=== PATIENT | male | born 1940 | race American Indian/Alaskan Native ===

== ENCOUNTER 2021-02-22 06:19 | Emergency (ER) | payer MEDICARE, MEDICAID ==
[2021-02-22 07:22] VITALS: BP 160/93
--- NOTE | 2021-02-22 10:24 | Emergency Department Report ---
ED ENT HPI - General Chief complaint: Earache Stated complaint: INSECT IN EAR Time Seen by Provider: 02/22/21 10:08 Source: patient Mode of arrival: Ambulatory Limitations: No Limitations - History of Present Illness Initial comments: Patient is a 80-year-old male presents emergency room complaints of concern for a right ear foreign body. He states that he believes a bug crawled into his ear early this morning. He states that the EMS personnel came to his house and he reports they were able to remove a bug. He states that he continues to have dis comfort in the ear. He denies any hearing changes. He denies any drainage or bleeding. Patient denies any medication allergies. - Related Data Previous Rx's Medication Instructions Recorded Last Taken Type Diclofenac Dr [Je Wu] 75 mg PO Q12H #60 tablet 06/29/14 Unknown Rx Finasteride [Proscar] 5 mg PO QDAY #30 tablet 06/29/14 Unknown Rx Neomycin/Polymyxin B/Hydrocort 4 drops AD QID 7 Days #1 solution 02/22/21 Unknown Rx [Hnunulaz-Txxwqixvq-Rz Ear Soln] Allergies Allergy/AdvReac Type Severity Reaction Status Date / Time No Known Allergies Allergy Unverified 06/29/14 12:05 ED Dental HPI - General Chief complaint: Earache Stated complaint: INSECT IN EAR Time Seen by Provider: 02/22/21 10:08 Source: patient Mode of arrival: Ambulatory Limitations: No Limitations - Related Data Previous Rx's Medication Instructions Recorded Last Taken Type Diclofenac Dr [Je Wu] 75 mg PO Q12H #60 tablet 06/29/14 Unknown Rx Finasteride [Proscar] 5 mg PO QDAY #30 tablet 06/29/14 Unknown Rx Neomycin/Polymyxin B/Hydrocort 4 drops AD QID 7 Days #1 solution 02/22/21 Unknown Rx [Fqtdirtp-Vywiegvnk-Hn Ear Soln] Allergies Allergy/AdvReac Type Severity Reaction Status Date / Time No Known Allergies Allergy Unverified 06/29/14 12:05 ED Review of Systems ROS: Stated complaint: INSECT IN EAR Other details as noted in HPI Comment: All other systems reviewed and negative ED Past Medical Hx - Past Medical History Previous Medical History?: Yes Additional medical history: Enlarged prostate - Surgical History Past Surgical History?: No - Social History Smoking Status: Never Smoker Substance Use Type: None - Medications Home Medications: Home Medications Medication Instructions Recorded Confirmed Last Taken Type Diclofenac [Voltaren Dr] 75 mg PO Q12H #60 tablet 06/29/14 Unknown Rx Finasteride [Proscar] 5 mg PO QDAY #30 tablet 06/29/14 Unknown Rx Neomycin/Polymyxin B/Hydrocort 4 drops AD QID 7 Days #1 solution 02/22/21 Unknown Rx [Ghupupbq-Wgbkvmigq-Ty Ear Soln] ED Physical Exam - General Limitations: No Limitations General appearance: alert, in no apparent distress - Head Head exam: Present: atraumatic, normocephalic - Eye Eye exam: Present: normal appearance - ENT ENT exam: Present: mucous membranes moist, other (left TM and canal are normal, right TM is intact, the right canal is erythematous with abrasion and dried blood, no obvious visualized foreign body, no purulent drainage) - Respiratory Respiratory exam: Absent: respiratory distress, accessory muscle use - Neurological Exam Neurological exam: Present: alert, oriented X3 - Psychiatric Psychiatric exam: Present: normal affect, normal mood - Skin Skin exam: Present: warm, dry ED Course Vital Signs 02/22/21 07:21 Temperature 98.1 F Pulse Rate 77 Respiratory 18 Rate Blood Pressure 160/93 O2 Sat by Pulse 98 Oximetry ED Medical Decision Making - Medical Decision Making Patient is a 80-year-old male presents emergency room complaints of concern for a right ear foreign body. He states that he believes a bug crawled into his ear early this morning. He states that the EMS personnel came to his house and he reports they were able to remove a bug. He states that he continues to have discomfort in the ear. He denies any hearing changes. He denies any drainage or bleeding. Patient denies any medication allergies. Vitals are stable. On exam:left TM and canal are normal, right TM is intact, the right canal is eryt hematous with abrasion and dried blood, no obvious visualized foreign body, no purulent drainage. Patient given prescription for antibiotic eardrops. There is no obvious visualized foreign body, will have patient follow-up with ENT for further evaluation. Discussed the importance of follow-up. Discussed return precautions. Advised patient Please use medication as prescribed. Please follow-up with a learning and development consultant to have the ear rechecked. Return to emergency room for any new or worsening symptoms. Critical care attestation.: If time is entered above; I have spent that time in minutes in the direct care of this critically ill patient, excluding procedure time. ED Disposition Clinical Impression: Ear canal abrasion Qualifiers: Encounter type: initial encounter Laterality: right Qualified Code(s): S00.411A - Abrasion of right ear, initial encounter Foreign body sensation in ear canal Qualifiers: Laterality: right Qualified Code(s): H61.891 - Other specified disorders of right external ear Disposition: DC-01 TO HOME OR SELFCARE Is pt being admited?: No Does the pt Need Aspirin: No Condition: Stable Additional Instructions: Please use medication as prescribed. Please follow-up with a learning and development consultant to have the ear rechecked. Return to emergency room for any new or worsening symptoms. Prescriptions: Neomycin/Polymyxin B/Hydrocort [Bmmyzltc-Rpyugqraz-Lj Ear Soln] 4 drops AD QID 7 Days #1 solution Referrals: SRINIVAS CRESPO MD [Primary Care Provider] - 2-3 Days DORETHA SALCEDO MD [Staff Physician] - 2-3 Days Time of Disposition: 10:22 Print Language: HUNGARIAN
== END 2021-02-22 10:45 | disposition home or self-care (01) ==
LOC: ED 06:19
DX: S00.411A Abrasion of right ear, initial encounter (principal); Z79.899 Other long term (current) drug therapy; X58.XXXA Exposure to other specified factors, initial encounter; Y93.89 Activity, other specified; Y92.89 Other specified places as the place of occurrence of the external cause; Y99.8 Other external cause status
CPT/HCPCS: 99281